=== PATIENT | male | born 1955 | race Caucasian/White ===

== ENCOUNTER 2017-10-22 20:31 | Emergency (ER) | payer BC, OTHER ==
[2017-10-22] MEDS ORDERED: Sodium Chloride 0.9% 1,000 ML IV ONE (20:56)
--- NOTE | 2017-10-22 20:56 | C.PDOC ---
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 Patient reports this is his first seizure in 9 years. Patient is on dilantin. Patient also reports during the seizure he fell on his left shoulder and felt like it dislocated but shoulder is currently back in place. Patient is awake, alert and oriented at this time. Denies any other physical complaints. Time Seen by Provider: 10/22/17 20:56 Chief Complaint (Nursing): Seizure History Per: Patient History/Exam Limitations: no limitations Onset/Duration Of Symptoms: Hrs Current Symptoms Are (Timing): Still Present Severity: Moderate Pain Scale Rating Of: 4 Reports Recently: Treated By A Physician Recent travel outside of the [place]: No Additional History Per: Patient Past Medical History Reviewed: Historical Data, Nursing Documentation, Vital Signs Vital Signs: Last Vital Signs Temp 98.1 F 10/22/17 20:42 Pulse 82 10/22/17 20:42 Resp 18 10/22/17 20:42 BP 141/86 10/22/17 20:42 Pulse Ox 98 10/22/17 22:36 - Medical History PMH: Seizures Family History: States: No Known Family Hx - Social History Hx Alcohol Use: No Hx Substance Use: No Review Of Systems Constitutional: Negative for: Fever, Chills Eyes: Negative for: Vision Change ENT: Negative for: Throat Pain Cardiovascular: Negative for: Chest Pain Respiratory: Negative for: Shortness of Breath Gastrointestinal: Negative for: Nausea, Vomiting, Abdominal Pain, Diarrhea Musculoskeletal: Positive for: Shoulder Pain (Left shoulder) Skin: Negative for: Rash Neurological: Negative for: Weakness, Numbness Psych: Negative for: Anxiety Physical Exam - Physical Exam Appears: Non-toxic, No Acute Distress, Other (No obvious injuries or trauma ) Skin: Warm, Dry Head: Normacephalic Eye(s): bilateral: Normal Inspection Oral Mucosa: Moist Neck: Trachea Midline, Supple Chest: Symmetrical, No Tenderness Cardiovascular: Rhythm Regular Respiratory: No Rales, No Rhonchi, No Wheezing Gastrointestinal/Abdominal: Soft, No Tenderness, No Distention Back: Normal Inspection Extremity: Normal ROM (To left shoulder ), No Deformity, Other (Left shoulder discomfort on palpitation with some active and passive movement) Extremity: Bilateral: Normal Color And Temperature, Normal ROM Pulses: Left Dorsalis Pedis: Normal, Right Dorsalis Pedis: Normal Neurological/Psych: Oriented x3, Normal Speech Gait: Steady ED Course And Treatment - Laboratory Results Result Diagrams: 10/22/17 21:10 10/22/17 21:10 O2 Sat by Pulse Oximetry: 98 (RA) Pulse Ox Interpretation: Normal - CT Scan/US CT Head Other Rad Studies (CT/US): Read By Radiologist, Radiology Report Reviewed CT/US Interpretation: EXAM: CT Head Without Intravenous Contrast. CLINICAL HISTORY: 61 years old, male; Signs and symptoms; Other: Seizure. TECHNIQUE: Axial computed tomography images of the head/brain without intravenous contrast. All CT scans at. this facility use at least one of these dose optimization techniques: automated exposure control; mA. and/or kV adjustment per patient size (includes targeted exams where dose is matched to clinical. indication); or iterative reconstruction. COMPARISON: No relevant prior studies available. FINDINGS: Brain: There is mild diffuse cerebral atrophy present, consistent with this patient's age. There is mild. diffuse heterogeneity of the white matter attenuation, consistent with chronic white matter ischemic. changes. The brain is otherwise unremarkable. Normal little- white matter differentiation is present,. without acute hemorrhage, or mass. There is a normal benign edgar cisterna magna. Ventricles: Unremarkable. No ventriculomegaly. Bones/joints: Small right frontal lucency likely sequela previous sindhu hole craniotomy. No acute. fracture. Soft tissues: Unremarkable. Sinuses: Unremarkable as visualized. No acute sinusitis. Mastoid air cells: Unremarkable as visualized. No mastoid effusion. IMPRESSION : Age -related atrophy and chronic white matter ischemic changes, with no evidence of an acute. intracranial abnormality. shoulder Other Rad Studies (CT/US): Interpreted By Me (no fx or dislocation) Progress Note: Administered IV fluids, and Toradol. Ordered blood work, Head CT , Left shoulder X-Ray, and urinalysis. Reevaluation Time: 23:03 Reassessment Condition: Improved Disposition Counseled Patient/Family Regarding: Studies Performed, Diagnosis, Need For Followup - Disposition Disposition: HOME/ ROUTINE Disposition Time: 20:56 Condition: FAIR Additional Instructions: Please follow up with your doctor Instructions: Seizures, Adult (DC), Shoulder Pain (DC) Forms: [facility] (Angolan) - Clinical Impression Clinical Impression: Seizure, Fall, Shoulder pain, left - Scribe Statement The provider has reviewed the documentation as recorded by the Becky Baum All medical record entries made by the Becky were at my direction and personally dictated by me. I have reviewed the chart and agree that the record accurately reflects my personal performance of the history, physical exam, medical decision making, and the department course for this patient. I have also personally directed, reviewed, and agree with the discharge instructions and disposition.
[2017-10-22 21:16] LABS: BASO # 0.1 K/uL (0.0-0.2); BASO % 0.8 % (0.0-2.0); EOS # 0.1 K/uL (0.0-0.7); EOS % 0.6 % (0.0-4.0); HEMOGLOBIN 14.4 g/dL (12.0-18.0); MEAN CELL VOLUME 90.3 fL (80.0-94.0); MEAN CORPUSCULAR HEMOGLOBIN 31.3 pg (27.0-31.0); MEAN CORPUSCULAR HGB CONC 34.7 g/dL (33.0-37.0); MEAN PLATELET VOLUME 7.3 fL (7.2-11.7); MONO # 0.9 K/uL (0.0-0.8); MONO % 8.5 % (0.0-10.0); NEUT # 8.1 K/uL (1.8-7.0); NEUT % 80.1 % (50.0-75.0); NRBC % 0.1 % (0.0-2.0); RBC 4.6 Mil/uL (4.40-5.90); WHITE BLOOD COUNT 10.1 K/uL (4.8-10.8)
[2017-10-22 21:28] LABS: ALB/GLOB RATIO 1.4 (1.0-2.1); ALBUMIN 4.4 g/dL (3.5-5.0); ALT/SGPT 56 U/L (21-72); AST/SGOT 43 U/L (17-59); BLOOD UREA NITROGEN 18 mg/dL (9-20); CALCIUM 8.9 mg/dl (8.6-10.4); GFR AFRICAN-AMERICAN > 60; GFR NON-AFRICAN AMERICAN > 60
[2017-10-22] MEDS ORDERED: Fosphenytoin 1,000 MG in Sodium Chloride 0.9% 50 ML IV STA (21:37)
[2017-10-22 23:12] VITALS: BP 143/88; PULSE 75; RESP 22; TEMP 98.2; O2SAT 97
--- NOTE | 2017-10-23 08:06 | CT ---
Date of service: 10/22/2017 PROCEDURE: CT HEAD WITHOUT CONTRAST. HISTORY: seizure COMPARISON: None available. TECHNIQUE: Axial computed tomography images were obtained through the head/brain without intravenous contrast. Radiation dose: Total exam DLP = 804 mGy-cm. This CT exam was performed using one or more of the following dose reduction techniques: Automated exposure control, adjustment of the mA and/or kV according to patient size, and/or use of iterative reconstruction technique. FINDINGS: HEMORRHAGE: No intracranial hemorrhage. BRAIN: Mild diffuse cerebral atrophy present consistent with the patient's stated age. Mild diffuse heterogeneity of the white matter attenuation consistent with chronic white matter ischemic changes. Domo cisterna magna. VENTRICLES: Unremarkable. No hydrocephalus. CALVARIUM: Small right frontal lucency possibly sequelae of prior sindhu hole craniotomy. PARANASAL SINUSES: Unremarkable as visualized. No significant inflammatory changes. MASTOID AIR CELLS: Unremarkable as visualized. No inflammatory changes. OTHER FINDINGS: None. IMPRESSION: Age related atrophy and chronic white matter ischemic changes with no evidence of an acute intracranial abnormality. Domo cisterna magna. If symptoms persists, consider correlation with MRI. These findings were preliminarily reported at 10:47 p.m. on 10/22/[address] Joshua De Los Santos from [facility].
--- NOTE | 2017-10-23 08:47 | RAD ---
Date of service: 10/22/2017 PROCEDURE: Radiographs of the Left Shoulder HISTORY: s/p fall.poss dislocation COMPARISON: No prior. FINDINGS: BONES: Humeral head/ greater tuberosity fracture -precise chronicity unknown sclerosis can be seen with prior fracture/dislocations here. Irregularity to the inferior glenoid rim noted can be seen with prior dislocations. Correlate clinically please JOINTS: Arthrosis. No current dislocation suggested SOFT TISSUES: Normal. OTHER FINDINGS: None. IMPRESSION: Humeral head/ greater tuberosity fracture -no gross displacement. At least 1 to 2 mm diastases of the major fracture fragment is noted. The faint sclerosis seen can be seen with subacute and/or subacute to chronic fractures. Multiple dislocations not excluded in this setting. Altered anterior inferior glenoid rim - as referenced above. No current dislocation suggested Arthrosis Comments: Fracture findings called in to ER and directly discussed with LIZZ Orta on 10/23/2017 at approximately 8:42 a.m.
== END 2017-10-22 23:17 | disposition home or self-care (01) ==
LOC: C.ER 20:31
DX: M25.512 Pain in left shoulder (principal); W19.XXXA Unspecified fall, initial encounter; Y92.89 Other specified places as the place of occurrence of the external cause; R56.9 Unspecified convulsions
CPT/HCPCS: 70450; 73030; 80053; 80185; 82948; 85025; 96365; 96375; 99285; J1885; J7030; Q2009